=== PATIENT | male | born 1955 | race Caucasian/White ===

== ENCOUNTER 2022-11-02 17:11 | Inpatient (IN) | payer MEDICARE, OTHER ==
[~2022-11-02] VITALS: Ht 185.4 cm; Wt 126.6 kg
[2022-11-02] MEDS ORDERED: ACETAMINOPHEN 325 MG TABLET PO PRN (19:30)
[2022-11-02] MEDS ORDERED: DEXTROSE 50% 50 ML DISP.SYRIN IV PRN (19:30)
[2022-11-02] MEDS ORDERED: REMEDY ESSENTIAL ZINC PASTE 113 GM TP PRN (19:30)
[2022-11-02] MEDS ORDERED: ZOLPIDEM 5 MG TABLET PO PRN (19:30)
[2022-11-02] MEDS ORDERED: ONDANSETRON 4 MG/2 ML VIAL IV PRN (19:30)
[2022-11-02] MEDS ORDERED: MAGNESIUM HYDROXIDE 30 ML LIQUID UDC PO PRN (19:30)
[2022-11-02] MEDS ORDERED: IV NS 1000 ML 1,000 ML IV PRN (19:30)
[2022-11-02] MEDS: IV NS 1000 ML 1,000 ML IV PRN (22:36)
[2022-11-02 22:42] VITALS: BP 143/53
[2022-11-02] MEDS: HEPARIN SODIUM,PORCINE 5,000 UNITS/ML VIAL SQ SCH (22:44)
[2022-11-02] MEDS: BLOOD SUGAR DIAGNOSTIC 1 EACH STRIP VI SCH (22:45)
[2022-11-02 22:58] LABS: CREATININE 1.9 mg/dL (0.6-1.3)
[2022-11-02] MEDS: HYDROMORPHONE 1 MG/1 ML DISP.SYRIN IV PRN (23:02)
[2022-11-02 23:03] LABS: POTASSIUM 2.4 mmol/L (3.5-5.1)
[2022-11-02] MEDS ORDERED: POTASSIUM CHLORIDE 20 MEQ TAB.PRT.SR PO ONE (23:30)
[2022-11-02] MEDS ORDERED: MAGNESIUM SULFATE/D5W 100 ML IV SCH (23:30)
[2022-11-02] MEDS: POTASSIUM CHLORIDE 50 ML IV SCH (23:47)
[2022-11-03] MEDS: POTASSIUM CHLORIDE 50 ML IV SCH ×5 (01:17→13:26)
[2022-11-03] MEDS: HYDROMORPHONE 1 MG/1 ML DISP.SYRIN IV PRN ×4 (03:46→20:42)
[2022-11-03 04:14] VITALS: BP 109/42
[2022-11-03] MEDS: PANTOPRAZOLE SODIUM 40 MG TABLET.DR PO SCH (06:23)
[2022-11-03 06:44] LABS: HEMATOCRIT 32.8 % (36.7-47.1); MEAN CORPUSCULAR HEMOGLOBIN 26.6 uug (23.8-33.4); MEAN CORPUSCULAR VOLUME 79.5 fL (73.0-96.2); PLATELET COUNT (AUTO) 260 K/uL (152-348)
[2022-11-03] MEDS: BLOOD SUGAR DIAGNOSTIC 1 EACH STRIP VI SCH ×4 (06:55→21:34)
[2022-11-03 07:10] LABS: THYROID STIMULATING HORMONE 5.223 mIU/mL (0.358-3.740)
[2022-11-03 07:12] LABS: CREATININE 1.7 mg/dL (0.6-1.3); MAGNESIUM 2.4 mg/dL (1.8-2.4); PHOSPHOROUS 3.2 mg/dL (2.5-4.9)
[2022-11-03 07:53] LABS: POTASSIUM 2.8 mmol/L (3.5-5.1)
[2022-11-03] MEDS ORDERED: POTASSIUM CHLORIDE 20 MEQ TAB.PRT.SR PO ONE ×2 (08:30→18:30)
[2022-11-03] MEDS: HYDROCODONE/APAP 5-325MG TABLET PO PRN (08:39)
[2022-11-03] MEDS: HEPARIN SODIUM,PORCINE 5,000 UNITS/ML VIAL SQ SCH ×2 (08:39→21:17)
[2022-11-03] MEDS: INSULIN REGULAR, HUMAN 300 UNIT/3 ML VIAL SQ PRN ×4 (08:42→21:28)
[2022-11-03] MEDS ORDERED: POTASSIUM CHLORIDE 20 MEQ POWDER PACKET PO ONE (09:00)
[2022-11-03] MEDS ORDERED: SENNOSIDES 1 TABLET PO PRN (09:15)
[2022-11-03] MEDS ORDERED: BISACODYL 10 MG SUPP.RECT RC ONE (09:30)
[2022-11-03] MEDS: DOCUSATE SODIUM 100 MG CAPSULE PO SCH ×2 (09:49→21:14)
[2022-11-03 11:33] VITALS: BP 129/54
[2022-11-03 14:24] LABS: CREATININE 1.7 mg/dL (0.6-1.3); POTASSIUM 3.2 mmol/L (3.5-5.1)
[2022-11-03 16:31] VITALS: BP 117/47
[2022-11-03] MEDS ORDERED: METO25TA6 PO (16:54)
[2022-11-03] MEDS ORDERED: METO2.5T2 PO (16:54)
[2022-11-03] MEDS ORDERED: RIVA15TA PO (16:54)
[2022-11-03] MEDS ORDERED: HYDR-500 PO (16:54)
[2022-11-03] MEDS ORDERED: APRE30TA2 PO (16:54)
[2022-11-03] MEDS ORDERED: GABA600T12 PO (16:54)
[2022-11-03] MEDS ORDERED: FURO-151 PO (16:54)
[2022-11-03] MEDS ORDERED: LINA5TAB PO (16:54)
[2022-11-03] MEDS ORDERED: FERR325T28 PO (16:54)
[2022-11-03] MEDS ORDERED: CHOL200010 PO (16:54)
[2022-11-03] MEDS ORDERED: METH5TAB6 PO (16:54)
[2022-11-03] MEDS ORDERED: ESCI10TA PO (16:54)
[2022-11-03] MEDS ORDERED: TAMS-3 PO (16:54)
[2022-11-03] MEDS ORDERED: ISOS30TA86 PO (16:54)
[2022-11-03] MEDS ORDERED: PANT40TA2 PO (16:54)
[2022-11-03] MEDS ORDERED: DAPA5TAB PO (16:54)
[2022-11-03] MEDS ORDERED: RANO10003 PO (16:54)
[2022-11-03] MEDS ORDERED: ATOR80TA PO (16:54)
[2022-11-03 20:00] VITALS: BP 129/68
[2022-11-03] MEDS: ATORVASTATIN 40 MG TABLET PO SCH (21:13)
[2022-11-03] MEDS: RANOLAZINE 500 MG TAB.ER.12H PO SCH (21:13)
[2022-11-03] MEDS: hydrOXYzine HCL 25 MG TABLET PO SCH (21:13)
[2022-11-03] MEDS: FERROUS SULFATE 325 MG TABEC PO SCH (21:14)
[2022-11-03] MEDS: METOPROLOL TARTRATE 25 MG TABLET PO SCH (21:26)
[2022-11-03] MEDS: OTEZLA 30 MG PO SCH (21:51)
[2022-11-04] VITALS: BP 135/56
[2022-11-04] MEDS: HYDROMORPHONE 1 MG/1 ML DISP.SYRIN IV PRN ×5 (00:36→21:08)
[2022-11-04 04:00] VITALS: BP 117/59
[2022-11-04] MEDS: IV NS 1000 ML 1,000 ML IV PRN (05:43)
[2022-11-04] MEDS: PANTOPRAZOLE SODIUM 40 MG TABLET.DR PO SCH (06:25)
[2022-11-04] MEDS: BLOOD SUGAR DIAGNOSTIC 1 EACH STRIP VI SCH ×4 (06:35→20:52)
[2022-11-04 06:52] LABS: MEAN CORPUSCULAR HEMOGLOBIN 26.6 uug (23.8-33.4); MEAN CORPUSCULAR VOLUME 79.7 fL (73.0-96.2); PLATELET COUNT (AUTO) 246 K/uL (152-348)
[2022-11-04 07:12] LABS: BILIRUBIN,TOTAL 1.5 mg/dL (0.2-1.0); CREATININE 1.4 mg/dL (0.6-1.3); POTASSIUM 3.2 mmol/L (3.5-5.1); TOTAL PROTEIN, SERUM 8.3 g/dL (6.4-8.2)
[2022-11-04] MEDS ORDERED: POTASSIUM CHLORIDE 20 MEQ TAB.PRT.SR PO ONE (07:45)
[2022-11-04 08:00] VITALS: BP 110/60
[2022-11-04 08:15] LABS: *CREATININE,URINE 71.7 mg/dL (30-125); *URINE TOTAL PROTEIN RANDOM 29.5 mg/dL (<150/24HR)
[2022-11-04] MEDS ORDERED: TAMSULOSIN HCL 0.4 MG CAP.SR.24H PO SCH (09:00)
[2022-11-04] MEDS ORDERED: PANTOPRAZOLE SODIUM 40 MG TABLET.DR PO SCH (09:00)
[2022-11-04] MEDS: HEPARIN SODIUM,PORCINE 5,000 UNITS/ML VIAL SQ SCH ×2 (09:45→20:42)
[2022-11-04] MEDS: LINAGLIPTIN 5 MG TABLET PO SCH (09:46)
[2022-11-04] MEDS: ESCITALOPRAM OXALATE 10 MG TABLET PO SCH (09:46)
[2022-11-04] MEDS: FERROUS SULFATE 325 MG TABEC PO SCH ×2 (09:46→20:45)
[2022-11-04] MEDS: GABAPENTIN 300 MG CAPSULE PO SCH ×3 (09:46→18:10)
[2022-11-04] MEDS: CHOLECALCIFEROL 1,000 UNIT TABLET PO SCH (09:46)
[2022-11-04] MEDS: hydrOXYzine HCL 25 MG TABLET PO SCH ×4 (09:46→20:40)
[2022-11-04] MEDS: FARXIGA 5 MG PO SCH (09:47)
[2022-11-04] MEDS: METHIMAZOLE 5 MG TABLET PO SCH ×2 (09:47→18:12)
[2022-11-04] MEDS: OTEZLA 30 MG PO SCH ×2 (09:47→18:11)
[2022-11-04] MEDS: RANOLAZINE 500 MG TAB.ER.12H PO SCH ×2 (09:47→20:41)
[2022-11-04] MEDS: DOCUSATE SODIUM 100 MG CAPSULE PO SCH ×2 (09:48→20:45)
[2022-11-04] MEDS: ISOSORBIDE MONONITRATE 30 MG TAB.SR.24H PO SCH (09:48)
[2022-11-04] MEDS: METOPROLOL TARTRATE 25 MG TABLET PO SCH ×2 (09:48→18:11)
[2022-11-04] MEDS: INSULIN REGULAR, HUMAN 300 UNIT/3 ML VIAL SQ PRN ×4 (10:04→20:52)
[2022-11-04] MEDS ORDERED: BISACODYL 10 MG SUPP.RECT RC ONE (11:30)
[2022-11-04] MEDS ORDERED: SORBITOL 70% SOLUTION 30 ML UDC PO ONE (11:30)
[2022-11-04] MEDS ORDERED: LACTULOSE 20 G/30 ML LIQUID UDC PO ONE (11:30)
[2022-11-04 13:19] LABS: *BILIRUBIN,URIN NEGATIVE (NEGATIVE); *BLOOD, URINE NEGATIVE (NEGATIVE); *CLARITY,URINE CLEAR (CLEAR); *COLOR,URINE YELLOW (YELLOW); *KETONES,URINE TRACE (NEGATIVE); LEUKOCYTE ESTERASE ,URINE NEGATIVE (NEGATIVE); NITRITE, URINE NEGATIVE (NEGATIVE); UGLUCOSE 3+ (NEGATIVE)
[2022-11-04 16:00] VITALS: BP 102/46
[2022-11-04] MEDS: ATORVASTATIN 40 MG TABLET PO SCH (20:44)
[2022-11-04] MEDS: TAMSULOSIN HCL 0.4 MG CAP.SR.24H PO SCH (20:45)
[2022-11-05] MEDS: HYDROMORPHONE 1 MG/1 ML DISP.SYRIN IV PRN ×4 (03:36→23:44)
[2022-11-05] MEDS: PANTOPRAZOLE SODIUM 40 MG TABLET.DR PO SCH (06:38)
[2022-11-05] MEDS: BLOOD SUGAR DIAGNOSTIC 1 EACH STRIP VI SCH ×4 (06:39→20:49)
[2022-11-05] MEDS ORDERED: INSULIN REGULAR, HUMAN 300 UNIT/3 ML VIAL ONE (06:49)
[2022-11-05] MEDS ORDERED: HYDROMORPHONE 2 MG/1 ML DISP.SYRIN ONE (06:51)
[2022-11-05] MEDS ORDERED: KETAMINE HCL 500 MG/10 ML INJ ONE ×2 (06:51→12:18)
[2022-11-05] MEDS ORDERED: SUCCINYLCHOLINE CHLORIDE 200 MG/10 ML VIAL ONE ×2 (06:52→12:18)
[2022-11-05] MEDS ORDERED: FAMOTIDINE. 20 MG/2 ML VIAL IV ONE ×2 (06:52→12:18)
[2022-11-05] MEDS ORDERED: MIDAZOLAM HCL 2 MG/2 ML VIAL ONE (06:52)
[2022-11-05] MEDS ORDERED: BUPIVACAINE PF 0.5% 30 ML VIAL ONE (06:56)
[2022-11-05] MEDS ORDERED: LIDOCAINE-MPF 2% 5 ML VIAL ONE ×2 (07:00)
[2022-11-05] MEDS ORDERED: DEXAMETHASONE SOD PHOSPHATE 4 MG INJ ONE (07:00)
[2022-11-05] MEDS ORDERED: METOCLOPRAMIDE HCL 10 MG/2 ML VIAL ONE (07:00)
[2022-11-05] MEDS ORDERED: PROPOFOL 200 MG/20 ML BOTTLE ONE (07:00)
[2022-11-05] MEDS ORDERED: GLYCOPYRROLATE 0.2 MG/ML VIAL ONE (07:00)
[2022-11-05] MEDS ORDERED: ONDANSETRON 4 MG/2 ML VIAL ONE (07:00)
[2022-11-05] MEDS ORDERED: ESMOLOL HCL 100 MG/10 ML VIAL IV ONE (07:00)
[2022-11-05] MEDS ORDERED: VECURONIUM BROMIDE 10 MG VIAL IV ONE (07:00)
[2022-11-05] MEDS ORDERED: CEFAZOLIN 1 G VIAL ONE ×3 (07:00)
[2022-11-05] MEDS ORDERED: ETOMIDATE 20 MG/10 ML VIAL ONE (07:00)
[2022-11-05] MEDS ORDERED: PHENYLEPHRINE 10 MG/1 ML VIAL ONE (07:00)
[2022-11-05 07:15] LABS: HEMATOCRIT 29.8 % (36.7-47.1); MEAN CORPUSCULAR HEMOGLOBIN 26.7 uug (23.8-33.4); MEAN CORPUSCULAR VOLUME 79.9 fL (73.0-96.2); PLATELET COUNT (AUTO) 261 K/uL (152-348)
[2022-11-05 07:35] LABS: PHOSPHOROUS 3.2 mg/dL (2.5-4.9)
[2022-11-05 07:36] LABS: CREATININE 1.5 mg/dL (0.6-1.3); POTASSIUM 3.2 mmol/L (3.5-5.1)
[2022-11-05] MEDS ORDERED: VANCOMYCIN 1000 MG VIAL ONE (07:45)
[2022-11-05] MEDS: hydrOXYzine HCL 25 MG TABLET PO SCH ×4 (09:00→20:35)
[2022-11-05] MEDS: FARXIGA 5 MG PO SCH (09:00)
[2022-11-05] MEDS: OTEZLA 30 MG PO SCH ×2 (09:00→17:09)
[2022-11-05] MEDS: METHIMAZOLE 5 MG TABLET PO SCH ×2 (09:00→17:09)
[2022-11-05] MEDS: ESCITALOPRAM OXALATE 10 MG TABLET PO SCH (09:00)
[2022-11-05] MEDS: GABAPENTIN 300 MG CAPSULE PO SCH ×3 (09:00→17:07)
[2022-11-05] MEDS: CHOLECALCIFEROL 1,000 UNIT TABLET PO SCH (09:00)
[2022-11-05] MEDS: HEPARIN SODIUM,PORCINE 5,000 UNITS/ML VIAL SQ SCH (09:00)
[2022-11-05] MEDS: FERROUS SULFATE 325 MG TABEC PO SCH ×2 (09:00→20:35)
[2022-11-05] MEDS: RANOLAZINE 500 MG TAB.ER.12H PO SCH ×2 (09:00→20:35)
[2022-11-05] MEDS: DOCUSATE SODIUM 100 MG CAPSULE PO SCH ×2 (09:00→20:35)
[2022-11-05] MEDS: ISOSORBIDE MONONITRATE 30 MG TAB.SR.24H PO SCH (09:00)
[2022-11-05] MEDS: LINAGLIPTIN 5 MG TABLET PO SCH (09:00)
[2022-11-05] MEDS: METOPROLOL TARTRATE 25 MG TABLET PO SCH ×2 (09:00→17:08)
[2022-11-05] MEDS ORDERED: MAGNESIUM SULFATE 1 GM/D5W 100 ML IVPB ONE (10:43)
[2022-11-05] MEDS: POTASSIUM CHLORIDE 50 ML IV SCH ×5 (11:12→14:29)
[2022-11-05] MEDS: INSULIN REGULAR, HUMAN 300 UNIT/3 ML VIAL SQ PRN ×3 (11:50→21:00)
[2022-11-05 12:00] VITALS: BP 123/49
[2022-11-05] MEDS: HYDROCODONE/APAP 5-325MG TABLET PO PRN (12:09)
[2022-11-05] MEDS ORDERED: ROCURONIUM BROMIDE 50 MG/5 ML VIAL ONE (12:18)
[2022-11-05] MEDS ORDERED: FENTANYL CITRATE 100 MCG/2 ML AMPUL ONE (12:18)
[2022-11-05] MEDS ORDERED: HYDROMORPHONE 1 MG/1 ML DISP.SYRIN IV ONE (12:45)
[2022-11-05 15:06] LABS: A/G RATIO 0.6 (0.7-1.7); ALPHA-1-GLOBULIN 0.5 g/dL (0.0-0.4); GAMMA GLOBULIN 2.3 g/dL (0.4-1.8); GLOBULIN, TOTAL 4.7 g/dL (2.2-3.9); M-SPIKE Not Observed g/dL (Not Observed)
[2022-11-05 16:00] VITALS: BP 117/62
[2022-11-05] MEDS: IV NS 1000 ML 1,000 ML IV PRN (17:48)
[2022-11-05] MEDS ORDERED: RIVAROXABAN 15 MG TABLET PO SCH (18:30)
[2022-11-05 20:00] VITALS: BP 121/52
[2022-11-05] MEDS: ATORVASTATIN 40 MG TABLET PO SCH (20:35)
[2022-11-05] MEDS: TAMSULOSIN HCL 0.4 MG CAP.SR.24H PO SCH (20:35)
[2022-11-05] MEDS ORDERED: INSULIN REGULAR, HUMAN 300 UNITS/3 ML VIAL SQ PRN (22:30)
[2022-11-05] MEDS ORDERED: DEXTROSE 50% 50 ML DISP.SYRIN IV PRN (22:30)
[2022-11-06] MEDS: HYDROMORPHONE 1 MG/1 ML DISP.SYRIN IV PRN ×4 (03:12→13:08)
[2022-11-06 04:00] VITALS: BP 122/65
[2022-11-06] MEDS: PANTOPRAZOLE SODIUM 40 MG TABLET.DR PO SCH (06:08)
[2022-11-06 06:33] LABS: HEMATOCRIT 28.8 % (36.7-47.1); MEAN CORPUSCULAR HEMOGLOBIN 26.5 uug (23.8-33.4); MEAN CORPUSCULAR VOLUME 80.4 fL (73.0-96.2); PLATELET COUNT (AUTO) 275 K/uL (152-348)
[2022-11-06 07:14] LABS: CREATININE 1.5 mg/dL (0.6-1.3); POTASSIUM 3.6 mmol/L (3.5-5.1)
[2022-11-06 07:23] LABS: MAGNESIUM 2.2 mg/dL (1.8-2.4); PHOSPHOROUS 3.4 mg/dL (2.5-4.9)
[2022-11-06] MEDS: BLOOD SUGAR DIAGNOSTIC 1 EACH STRIP VI SCH ×2 (07:49→12:16)
[2022-11-06] MEDS: INSULIN REGULAR, HUMAN 300 UNIT/3 ML VIAL SQ PRN ×2 (07:53→12:18)
[2022-11-06] MEDS: CHOLECALCIFEROL 1,000 UNIT TABLET PO SCH (08:21)
[2022-11-06] MEDS: ESCITALOPRAM OXALATE 10 MG TABLET PO SCH (08:21)
[2022-11-06] MEDS: LINAGLIPTIN 5 MG TABLET PO SCH (08:21)
[2022-11-06] MEDS: FERROUS SULFATE 325 MG TABEC PO SCH (08:21)
[2022-11-06] MEDS: RANOLAZINE 500 MG TAB.ER.12H PO SCH (08:21)
[2022-11-06] MEDS: hydrOXYzine HCL 25 MG TABLET PO SCH ×2 (08:21→12:33)
[2022-11-06] MEDS: DOCUSATE SODIUM 100 MG CAPSULE PO SCH (08:21)
[2022-11-06] MEDS: GABAPENTIN 300 MG CAPSULE PO SCH ×2 (08:22→12:33)
[2022-11-06] MEDS: ISOSORBIDE MONONITRATE 30 MG TAB.SR.24H PO SCH (08:22)
[2022-11-06] MEDS: METOPROLOL TARTRATE 25 MG TABLET PO SCH (08:22)
[2022-11-06] MEDS: OTEZLA 30 MG PO SCH (08:23)
[2022-11-06] MEDS: FARXIGA 5 MG PO SCH (08:23)
[2022-11-06] MEDS: METHIMAZOLE 5 MG TABLET PO SCH (08:25)
[2022-11-06] MEDS ORDERED: CEFAZOLIN IV SCH (11:00)
[2022-11-06] MEDS ORDERED: NORMAL SALINE IV SCH (11:00)
[2022-11-06 11:30] VITALS: BP 121/54
[2022-11-06] MEDS ORDERED: FURO40TA5 PO (13:15)
[2022-11-06] MEDS ORDERED: DOCU-141 PO (13:15)
[2022-11-06] MEDS ORDERED: CEPH500C2 PO (13:15)
[2022-11-06] MEDS ORDERED: HYDR-3980 PO ×2 (13:15→13:16)
[2022-11-07] MEDS ORDERED: FUROSEMIDE 40 MG TABLET PO SCH (09:00)
== END 2022-11-06 15:45 | disposition left against medical advice (07) | DRG 492 ==
LOC: MEDSURG3 21:40 → TELE3 21:56 → MEDSURG3 11-04 10:12
PROVIDERS: ADMIT Nurse Practitioner Acute Care; ATTEND Nurse Practitioner Acute Care
PROC: 0QSK04Z Reposition Left Fibula with Internal Fixation Device, Open Approach (ICD-10-PCS; principal; 2022-11-05)
PROC: 0QSH04Z Reposition Left Tibia with Internal Fixation Device, Open Approach (ICD-10-PCS; 2022-11-05)
PROC: 0SSG04Z Reposition Left Ankle Joint with Internal Fixation Device, Open Approach (ICD-10-PCS; 2022-11-05)
DX: S82.842A Displaced bimalleolar fracture of left lower leg, initial encounter for closed fracture (principal); N17.0 Acute kidney failure with tubular necrosis; I13.0 Hypertensive heart and chronic kidney disease with heart failure and stage 1 through stage 4 chronic kidney disease, or unspecified chronic kidney disease; I50.32 Chronic diastolic (congestive) heart failure; E87.1 Hypo-osmolality and hyponatremia; D68.59 Other primary thrombophilia; S93.02XA Subluxation of left ankle joint, initial encounter; E87.6 Hypokalemia; W18.39XA Other fall on same level, initial encounter; Y93.E1 Activity, personal bathing and showering; Y92.031 Bathroom in apartment as the place of occurrence of the external cause; E11.22 Type 2 diabetes mellitus with diabetic chronic kidney disease; N18.9 Chronic kidney disease, unspecified; E66.01 Morbid (severe) obesity due to excess calories; Z68.36 Body mass index [BMI] 36.0-36.9, adult; R42 Dizziness and giddiness; E86.1 Hypovolemia; Z74.09 Other reduced mobility; K59.00 Constipation, unspecified; L40.9 Psoriasis, unspecified; I25.10 Atherosclerotic heart disease of native coronary artery without angina pectoris; Z53.29 Procedure and treatment not carried out because of patient's decision for other reasons; E11.65 Type 2 diabetes mellitus with hyperglycemia; E11.40 Type 2 diabetes mellitus with diabetic neuropathy, unspecified; E83.42 Hypomagnesemia; Z79.4 Long term (current) use of insulin; M17.12 Unilateral primary osteoarthritis, left knee; E78.5 Hyperlipidemia, unspecified; R94.6 Abnormal results of thyroid function studies; Z95.1 Presence of aortocoronary bypass graft; Z20.822 Contact with and (suspected) exposure to COVID-19
CPT/HCPCS: 36415; 71045; 73610; 73700; 76770; 83735; 83935; 83970; 84100; 84132; 84133; 84155; 84156; 84165; 84300; 84443; 85025; 93005; 93307; A4663; C1713; G0378; J0330; J0690; J1100; J1170; J1644; J1815; J2250; J2370; J2405; J2765; J3010; J3370; J3475; J3480; J3490; J7040